=== PATIENT | male | born 1985 | race Asian ===

== ENCOUNTER 2019-01-05 17:42 | Emergency (ER) | payer BC ==
[~2019-01-05] VITALS: Ht 182.9 cm; Wt 117.9 kg
[2019-01-05 18:28] LABS: PLATELET COUNT 231 K/uL (142-355)
[2019-01-05 18:44] LABS: POTASSIUM 3.7 mmol/L (3.6-5.2)
[2019-01-05 20:45] VITALS: TEMP 98
[2019-01-05 21:30] VITALS: BP 153/94
== END 2019-01-05 21:33 | disposition short-term general hospital (02) ==
LOC: ED 17:42
PROVIDERS: Emergency Medicine
DX: I21.3 ST elevation (STEMI) myocardial infarction of unspecified site (principal)
CPT/HCPCS: 36415; 80053; 82550; 82553; 84484; 85027; 93005; 96374; 99284; J2270

== ENCOUNTER 2019-12-24 10:32 | Outpatient (CLI) | payer BC ==
[2019-12-24 10:56] LABS: PLATELET COUNT 217 K/uL (142-355)
== END 2019-12-24 19:10 | disposition home or self-care (01) ==
LOC: RAD 10:32
PROVIDERS: Registered Nurse
DX: R07.9 Chest pain, unspecified (principal); R06.00 Dyspnea, unspecified; R60.9 Edema, unspecified
CPT/HCPCS: 36415; 80053; 82550; 82553; 83735; 83880; 84484; 85027

== ENCOUNTER 2020-11-25 22:47 | Emergency (ER) | payer BC ==
[~2020-11-25] VITALS: Ht 185.4 cm; Wt 127.0 kg
[2020-11-25 23:24] LABS: PLATELET COUNT 148 K/uL (142-355)
[2020-11-25 23:34] LABS: POTASSIUM 4.3 mmol/L (3.6-5.2)
[2020-11-26 02:17] LABS: PARTIAL THROMBOPLASTIN TIME 32.5 SECONDS (24.5-33.6)
[2020-11-26 03:15] VITALS: BP 127/76; TEMP 99
== END 2020-11-26 03:15 | disposition short-term general hospital (02) ==
LOC: ED 22:47
PROVIDERS: Family Medicine
DX: R06.09 Other forms of dyspnea (principal); I42.2 Other hypertrophic cardiomyopathy; U07.1 COVID-19
CPT/HCPCS: 36415; 36416; 36600; 80053; 82550; 82553; 82805; 83605; 84484; 85027; 85610; 85730; 87040; 93005; 96365; 96375; 99284; J1644; J2405; J2930